=== PATIENT | female | born 1995 | race Hispanic/Latino ===

== ENCOUNTER 2023-09-15 17:59 | Emergency (ER) | payer SELFPAY ==
[~2023-09-15] VITALS: Ht 165.1 cm; Wt 73.9 kg
[2023-09-15] MEDS ORDERED: TRIA1CR80 TOP (22:29)
[2023-09-15 22:31] VITALS: BP 133/82; TEMP 98.1; O2SAT 97
== END 2023-09-15 22:36 | disposition home or self-care (01) ==
LOC: M ED 17:59
DX: L30.8 Other specified dermatitis (principal); Z79.2 Long term (current) use of antibiotics